=== PATIENT | male | born 1990 | race Two or more races ===

== ENCOUNTER 2017-10-27 10:36 | Emergency (ER) | payer BC ==
[~2017-10-27] VITALS: Ht 172.7 cm; Wt 79.4 kg
[~2017-10-27 10:36] MED LIST: CLEOCIN HCL300 MG PO; IBUPROFEN800 MG PO; KETO10TA2 PO; LEVSIN/SL0.125 MG SL; LOSARTAN-HCTZ1 EACH PO; METOPROLOL SUCC25 MG; ORPH100T PO; TENORMIN50 MG; XANAX XR0.5 MG
[2017-10-27] MEDS ORDERED: CLONAZEPAM1 M1 (10:50)
[2017-10-31] MEDS ORDERED: PHENERGAN25 MG PO (05:49)
[2017-10-31] MEDS ORDERED: PEPCID40 MG PO (05:49)
== END 2017-10-27 13:31 | disposition home or self-care (01) ==
LOC: ER 10:36
DX: B34.9 Viral infection, unspecified (principal)

== ENCOUNTER → 2017-10-30 | Emergency (ER) | payer BC ==
[~2017-10-30] VITALS: Ht 172.7 cm; Wt 80.7 kg
[~2017-10-30] MED LIST changes: +CLONAZEPAM1 M1; +PEPCID40 MG PO; +PHENERGAN25 MG PO
== END | disposition home or self-care (01) ==
LOC: ER 23:29
DX: B34.9 Viral infection, unspecified (principal)